=== PATIENT | female | born 1985 ===

== ENCOUNTER → 2020-06-10 | Outpatient (CLI) | payer OTHER ==
[2020-06-11 15:09] LABS: HPV 16 Negative (Negative); HPV 18 Negative (Negative); HPV OTHER HR TYPES Negative (Negative)
== END ==
LOC: LAB 13:30 → LAB SHORT 13:30
PROVIDERS: Nurse Practitioner Family
DX: Z01.419 Encounter for gynecological examination (general) (routine) without abnormal findings (principal)
CPT/HCPCS: 87624; G0145

== ENCOUNTER 2024-04-17 00:23 | Emergency (ER) | payer OTHER ==
[~2024-04-17] VITALS: Ht 162.6 cm; Wt 98.0 kg
[2024-04-17 00:33] VITALS: BP 169/97
[2024-04-17] MEDS ORDERED: Ketorolac Tromethamine 10 MG Tab PO ONE (00:45)
[2024-04-17] MEDS ORDERED: Diphth,Pertuss(Acell),Tet Vac 0.5 ML VIAL IM ONE (00:45)
[2024-04-17] MEDS ORDERED: RX Prepack 6 Tabs Oxycodone 5mg UD ONE (02:30)
[2024-04-17] MEDS ORDERED: OxyCODONE HCL 5 MG TAB PO ONE (02:30)
[2024-04-17] MEDS ORDERED: Cefdinir 300 MG Cap PO ONE (02:35)
[2024-04-17] MEDS ORDERED: CEFD300 PO (02:36)
== END 2024-04-17 02:45 | disposition home or self-care (01) ==
LOC: ER 00:23
DX: S68.127A Partial traumatic metacarpophalangeal amputation of left little finger, initial encounter (principal); S67.197A Crushing injury of left little finger, initial encounter; W23.0XXA Caught, crushed, jammed, or pinched between moving objects, initial encounter; Y99.0 Civilian activity done for income or pay
CPT/HCPCS: 73130; 90715; A9270